=== PATIENT | female | born 1935 | race Caucasian/White ===

== ENCOUNTER 2023-06-21 07:07 | Day surgery (SDC) | payer MEDICARE, BC ==
[2023-06-17 14:22] LABS: BASOPHILS % (AUTO) 0.8 % (0-1); EOSINOPHILS # (AUTO) 0.1 X10'3 (0-0.9); EOSINOPHILS % (AUTO) 1.6 % (0-6); LYMPHOCYTES # (AUTO) 1.1 X10'3 (1.1-4.8); LYMPHOCYTES % (AUTO) 26.2 % (21-51); MEAN CORPUSCULAR HEMOGLOBIN 28.9 PG (27.0-31.0); MEAN CORPUSCULAR HGB CONC 32.6 g/dL (33.0-36.5); MEAN CORPUSCULAR VOLUME 88.7 FL (78-98); MEAN PLATELET VOLUME 9.9 FL (7.4-10.4); MONOCYTES # (AUTO) 0.3 X10'3 (0-0.9); MONOCYTES % (AUTO) 7.5 % (2-12); NEUTROPHILS # (AUTO) 2.6 X10'3 (1.8-7.7); NEUTROPHILS % (AUTO) 63.9 % (42-75); PRE OP HEMATOCRIT 37.5 % (35.0-45.0); PRE OP HEMOGLOBIN 12.2 g/dL (12.0-16.0); PRE OP PLATELET COUNT 163 X10'3 (140-440); RED BLOOD COUNT 4.23 X10'6 (4.20-5.60); RED CELL DISTRIBUTION WIDTH 15.5 % (11.5-14.5)
[2023-06-17 14:26] LABS: ALBUMIN 3.6 G/DL (3.4-5.0); ALKALINE PHOSPHATASE 68 IU/L (46-116); BLOOD UREA NITROGEN 17 MG/DL (7-18); BUN/CREATININE RATIO 17.2 (10.0-20.0); CALCIUM 8.5 MG/DL (8.5-10.1); CHLORIDE 105 MMOL/L (99-107); CREATININE 0.99 MG/DL (0.40-0.90); PRE OP ALT 33 U/L (30-65); PRE OP ANION GAP 8 (8-16); PRE OP AST 35 U/L (10-37); PRE OP BILIRUB, TOTAL 0.4 MG/DL (0.0-1.0); PRE OP GLUCOSE 95 MG/DL (70-104); PRE OP POTASSIUM 4.6 MMOL/L (3.4-5.1); PRE OP SODIUM 139 MMOL/L (135-145); TOTAL CARBON DIOXIDE 26.4 MMOL/L (24-32); TOTAL PROTEIN 7.2 G/DL (6.4-8.2); eGFR 53 ML/MIN
[~2023-06-21] VITALS: Ht 160 cm; Wt 80.3 kg
[2023-06-21] VITALS (20 sets, daily range): BP systolic 129–187; BP diastolic 61–82; PULSE 50–64; RESP 12–18; TEMP 98; O2SAT 90–100
[~2023-06-21 07:07] MED LIST: ALEN70TA80 PO; ATOR10TA70 PO; BUPIVAcaine/PF 2.5mg/ml (0.25%) 10ml vial ONE; CHOL10008 PO; LACTC PO; LEVO75TA56 PO; LORA0.5T PO; MULT-1085 PO; OXYB5TAB16 PO; cefazolin 2gm/D5W 100mL 100 ML IV ONE; famotidine 20mg tablet PO ONE; ringers solution, lacted 500 ML IV SCH
[2023-06-21] MEDS ORDERED: acetaminophen 1,000mg/100ml IV 100 ML IV PRN (09:00)
[2023-06-21] MEDS ORDERED: ringers solution, lacted 1,000 ML IV SCH (09:00)
[2023-06-21] MEDS ORDERED: proCHLORperazine 10 MG/2 ml inj IV PRN (09:00)
[2023-06-21] MEDS ORDERED: meperidine/PF 25mg/ml syringe IV PRN ×3 (09:00)
[2023-06-21] MEDS ORDERED: labetalol 20mg/4ml (5mg/ml) syringe IV PRN (09:00)
[2023-06-21] MEDS ORDERED: fentaNYL/PF 50MCG/1 ML 2ML syringe IV PRN ×2 (09:00)
[2023-06-21] MEDS ORDERED: ondansetron/PF 4mg/2ml inj IV PRN (09:00)
[2023-06-21] MEDS ORDERED: hydrALAZINE 20mg/ml inj. IV PRN (09:00)
[2023-06-21] MEDS ORDERED: fentaNYL/PF 50MCG/1 ML 2ML syringe ONE (10:09)
[2023-06-21] MEDS ORDERED: midazolam 1 mg/ML 2ml injection ONE (10:10)
[2023-06-21] MEDS ORDERED: propofol inj 20 ML IV ONE (10:22)
[2023-06-21] MEDS ORDERED: LIDOcaine 0.5% (5mg/ml) 50ml vial ONE (10:22)
--- NOTE | 2023-06-21 10:37 | NUR ---
Received from OR via [facility] TO [facility], accompanied by Anesthesiologist DR CHATTERJEE and report given by Anesthesiolgist. PT PRESENTS WITH PIV 20G LEFT WRIST, RIGHT WRIST DRESSING CDI, SPO2 97% MASK 6L, LR RUNNING AT 100MLS/HR, VSS. Addendum: 06/21/23 at 1051 by Ananya Gaston RN, RN Amended: Links added.
--- NOTE | 2023-06-21 13:27 | NUR ---
I HAVE REVIEWED D/C INSTRUCTIONS WITH PATIENT AND THEY HAVE VERBALIZED UNDERSTANDING OF INSTRUCTIONS. PATIENT D/C HOME WITH ALL BELONGINGS AND FAMILY GAVE TRANSPORT. Addendum: 06/21/23 at 1346 by Ananya Gaston RN, RN Amended: Links added.
== END 2023-06-21 13:27 | disposition home or self-care (01) ==
LOC: PAS 07:07
PROVIDERS: ATTEND Orthopaedic Surgery Hand Surgery
DX: G56.01 Carpal tunnel syndrome, right upper limb (principal); G43.909 Migraine, unspecified, not intractable, without status migrainosus; I10 Essential (primary) hypertension; E03.9 Hypothyroidism, unspecified; F32.A Depression, unspecified; G47.00 Insomnia, unspecified; E66.9 Obesity, unspecified; Z68.31 Body mass index [BMI] 31.0-31.9, adult; F41.9 Anxiety disorder, unspecified; M19.012 Primary osteoarthritis, left shoulder; G47.33 Obstructive sleep apnea (adult) (pediatric); Z88.1 Allergy status to other antibiotic agents; Z88.2 Allergy status to sulfonamides; Z79.899 Other long term (current) drug therapy; Z88.0 Allergy status to penicillin; Z88.5 Allergy status to narcotic agent; Z96.612 Presence of left artificial shoulder joint; Z98.890 Other specified postprocedural states; Z87.891 Personal history of nicotine dependence
CPT/HCPCS: 36415; 64721; 80053; 82948; 85025; 93005; J0690; J2250; J2704; J3010; J3490; J7030; J7120; Z7506; Z7512; A4215; A6449

== ENCOUNTER 2025-10-13 14:44 | Outpatient (CLI) | payer MEDICARE, BC ==
[~2025-10-13 14:44] MED LIST changes: -BUPIVAcaine/PF 2.5mg/ml (0.25%) 10ml vial ONE; -CHOL10008 PO; +CHOL25CA2 PO; -OXYB5TAB16 PO; +OXYB5TAB21 PO; -cefazolin 2gm/D5W 100mL 100 ML IV ONE; -famotidine 20mg tablet PO ONE; +iohexol 300mg/ml 100ml inj. ONE; -ringers solution, lacted 500 ML IV SCH
--- NOTE | 2025-10-13 18:52 | RADIOLOGY REPORT ---
EXAM: CT CT CHEST W/ IV CONTRAST HISTORY: LEFT UPPER LOBE MASS TECHNIQUE: CT angiogram was performed. CT scans at this facility use dose modulation, iterative reconstruction, and/or weight based dosing when appropriate to reduce radiation dose to as low as reasonably achievable. Coronal and sagittal reformations and maximum intensity projection images were created from the transaxial source data by the medical technologist chief and workstation, as well as 3-D volume rendered images with MIPs. COMPARISON: None FINDINGS: [LOWER NECK]: Unremarkable [LYMPH NODES/MEDIASTINUM]: Prominent lower paratracheal mediastinal lymph nodes, measuring up to 1.4 cm likely compatible with neoplastic involvement [CARDIOVASCULAR]: Normal cardiac size. No pericardial effusion. No aneurysmal dilatation of the great vessels. No significant coronary artery calcifications. [PULMONARY ARTERIES]: Question complete occlusion related to mass encasement of the anterior segment of the left upper lobe segmental artery. Prominence of the main pulmonary artery, which may indicate pulmonary hypertension. Slight effacement caliber of the left distal main pulmonary artery. Encasement of the lingular segmental arteries. No evidence of elevated right heart pressures. [UPPER ABDOMEN]: Multiple splenic hypoattenuating oval-shaped lesions which may be compatible with metastatic disease. [MUSCULOSKELETAL]: No CT evidence of an acute fracture or aggressive focal osseous lesion. Right prior anterior healed 3rd, 4th, 5th rib fractures. Left shoulder arthroplasty. Multilevel degenerative change of the visualized spine. [CHEST WALL]: Unremarkable. [LUNG PARENCHYMA/PLEURAL SPACE]: Large left upper lobe mass with macrolobulated and spiculated Margins with left hilar invasion and mediastinal extension. Concomitant abnormal mediastinal lymphadenopathy. Overall imaging findings compatible with lung carcinoma. 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 Inconspicuous ground-glass extension of the left upper lobe. Additional areas of ground-glass of nonspecific etiology of the periphery of the right upper lobe. Indeterminate peribronchovascular consolidation/ thickening of the right middle lobe. Scattered calcific granulomas. IMPRESSION: 1. Large left upper lobe mass with macrolobulated and spiculated Margins with left hilar invasion and mediastinal extension. 2. Concomitant abnormal mediastinal lymphadenopathy. 3. Overall imaging findings compatible with lung carcinoma. 4. Question complete occlusion related to mass encasement of the anterior segment of the left upper lobe segmental artery. 5. 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
== END 2025-10-13 23:59 | disposition home or self-care (01) ==
LOC: RAD 14:44
DX: R91.8 Other nonspecific abnormal finding of lung field (principal); M47.814 Spondylosis without myelopathy or radiculopathy, thoracic region; Z96.612 Presence of left artificial shoulder joint
CPT/HCPCS: 71260; Q9967

== ENCOUNTER 2025-10-18 06:45 | Emergency (ER) | payer MEDICARE, BC ==
[~2025-10-18] VITALS: Ht 160 cm; Wt 73.9 kg
[~2025-10-18 06:45] MED LIST changes: -iohexol 300mg/ml 100ml inj. ONE
--- NOTE | 2025-10-18 07:04 | ELECTROCARDIOGRAPH REPORT ---
[facility] Test Date: 2025-10-18 Test Time: 06:53:23 Pat Name: RAJWINDER WARE Department: EMERGENCY ROOM Room: Gender: F Entry Rep: PM : 1935 Requested By: EDIS SCHMITZ Order Number: [id number] Reading MD: Dr. Edis Schmitz Measurements Intervals [place] Rate: 76 P: 66 MA: 198 QRS: 59 QRSD: 103 T: 36 QT: 385 QTc: 433 Interpretive Statements Sinus rhythm Supraventricular bigeminy Low voltage, precordial leads Electronically Signed On 10-18-2025 7:06:[address] Edis Schmitz Please click the below link to view image of tracing.
--- NOTE | 2025-10-18 07:31 | RADIOLOGY REPORT ---
CHEST RADIOGRAPH Indication: CP Technique: Single frontal view of the chest was obtained COMPARISON: CT CT CHEST W/ IV CONTRAST on DOS: 10/13/25 FINDINGS: Lines and Tubes: None Lungs: Increased interstitial prominence. This may represent pulmonary vascular congestion and/or viral pneumonia. Left upper lobe airspace consolidation. Pleura: No effusion. No pneumothorax. Cardiomediastinal contours: Unremarkable Bones: Unremarkable IMPRESSION: Increased interstitial prominence. This may represent pulmonary vascular congestion and/or viral pneumonia. Left upper lobe masslike airspace consolidation. This may represent neoplasm or infection. Clinical correlation advised. Recommend repeat imaging after treatment to ensure complete resolution.
[2025-10-18 07:36] LABS: MEAN PLATELET VOLUME 8.1 FL (7.4-10.4); RED CELL DISTRIBUTION WIDTH 15.9 % (11.5-14.5)
[2025-10-18 07:58] LABS: CREATININE 1.08 MG/DL (0.40-0.90); PRO BRAIN NATRIURETIC PEPTIDE 1223 PG/ML (0-450); TOTAL CARBON DIOXIDE 28.2 MMOL/L (24-32); eCRCL 29 ML/MIN; eGFR 48 ML/MIN
--- NOTE | 2025-10-18 10:49 | Physician Documentation ---
History of Present Illness ~ Chief Complaint: Chest Pain Stated Complaint: CHEST PAINS A ALS Time Seen by MD: 07:17 OK to notify your PCP?: Yes Primary Medical Doctor: Cristopher FISHER Source: patient, RN/MD, EMS, RN notes reviewed, EMS notes reviewed, old records Mode of Arrival: EMS Exam Limitations: no limitations HPI THIS 89-YEAR-OLD FEMALE presents to the ER after having some chest pain that was quite significant in severe in the left chest wall nonradiating. Movement seems to make it worse. She did not take any pain medications because she was told she should not. She has not appointment for a stress test with her software configuration engineer at 1:00 p.m.. Patient has not had any food today. She recently was diagnosed with a lung mass has a CAT scan just the other day that showed a spiculated mass. She denies any other complaints such as shortness of breath diaphoresis. She has no history of prior mild cardial infections. She does take diuretics. She has a past medical history of smoking 60 year pack history. She appears well states her symptoms seemed to have resolved Medication Reconciliation Allergies: Coded Allergies: clindamycin (Verified Allergy, Unknown, 04/14/15) codeine (Verified Allergy, Unknown, 04/14/15) sulfamethoxazole (Verified Allergy, Unknown, 06/20/23) trimethoprim (Verified Allergy, Unknown, 06/20/23) Penicillins (Verified Adverse Reaction, Intermediate, rash, 06/20/23) Scheduled Alendronate Sodium (Alendronate Sodium), 1 TAB PO QSUNDAY, (Reported) Atorvastatin Calcium (Atorvastatin Calcium), 1 TAB PO DAILY, (Reported) Cholecalciferol (Vitamin D3) (Vitamin D3), 1 CAP PO DAILY, (Reported) Lactobacillus Acidophilus (ACIDOPHILUS capsule), 1 CAP PO DAILY, (Reported) Levothyroxine Sodium (Levoxyl), 1 TAB PO DAILY, (Reported) Multivitamin (Multi Vitamin Daily), 1 EACH PO DAILY, (Reported) Oxybutynin Chloride (Oxybutynin Chloride), 1 TAB PO BID, (Reported) Scheduled PRN Lorazepam* (Ativan*), 1 TAB PO TID PRN for for anxiety/agitation, (Reported) Past Medical History Past Medical History: Hypothyroidism, MRSA Abscess Past Surgical History: orthopedic surgeries Smoking Status: Current every day smoker Alcohol Use: Occasionally Drug Use: none Lives with: S/O Lives In: Home Occupation: retired Review of Systems All Other Systems at this time: Reviewed and Negative Physical Exam Vital Signs: RN Vital Signs have been reviewed: Yes, Temperature: 98.2, Source: Oral, Heart Rate: 61, Respiratory Rate: 18, BP: 108/56, Pulse Oximetry: 99, Weight: 73.900 Oxygen Flow Rate: 2.0 Physical Exam General: The patient is well developed, well nourished, nontoxic appearing and is in no acute distress. Skin: [place], warm and dry with no rashes. HEENT: Head was normocephalic and atraumatic. Eyes - pupils equal, round, reactive to light and accommodation. Extraocular movements were intact. Conjunctivae were nonicteric. The mouth and oropharynx were clear with moist mucous membranes. There were no pharyngeal exudates or erythema. Neck: Supple and nontender. There was no jugular venous distention, lymphadenopathy, thyromegaly or masses. Chest: Clear to auscultation bilaterally without wheezes, rales or rhonchi. No accessory muscle use. No dullness to percussion. Positive chest wall pain with movement and palpation Heart: Rate regular and rhythmic. S1, S2. No murmurs. Palpation of the chest wall was normal. No rubs or thrills. Positive left chest wall anterior reproducible pain Abdomen: Soft, nontender and nondistended. Positive bowel sounds. No guarding or rebound. Extremities: No cyanosis, clubbing or edema. The patient moves all extremities. Pulses were equal and symmetric. Neurologic: Motor sensory grossly intact Psychologic: The patient was oriented to person, place and time. The patient demonstrated appropriate judgement and insight. Progress Results/Orders Reviewed/noted all lab results: Yes Results/Orders Orders - CARLOS MACHADO MD Chest,Single View (10/18/25 07:02) Monitor (10/18/25 07:02) Saline Lock (10/18/25 07:02) Oxygen (10/18/25 07:02) Electrocardiogram (10/18/25 07:02) Completed Orders - CARLOS MACHADO MD Chest,Single View (10/18/25 07:02) Cbc/Diff (10/18/25 07:02) BMP (10/18/25 07:02) PBNP (10/18/25 07:02) Electrocardiogram (10/18/25 07:02) Hs Troponin I W Calculations (10/18/25 07:02) Hs Troponin I W Calculations (10/18/25 09:02) Hs Troponin I W Calculations (10/18/25 10:02) Acetaminophen 325mg Tablet (Tylenol Tabl (10/18/25 11:20) Ketorolac Trometh 15mg/Ml Vial (Toradol (10/18/25 11:20) Medications Received in ER Medications (Trade) Dose Ordered Sig/Tracie Route PRN Reason Start Time Stop Time Status Last Admin Dose Admin (Tylenol tablet) 325 mg ONCE ONCE PO 10/18/25 11:20 10/18/25 11:21 DC 10/18/25 11:50 325 MG (Toradol injection) 10 mg ONCE ONCE IV 10/18/25 11:20 10/18/25 11:21 DC 10/18/25 11:50 10 MG Vital Signs 10/18/25 10/18/25 10/18/25 06:49 07:16 08:12 Temp 98.2 Pulse 77 61 Resp 16 14 18 B/P (MAP) 104/50 108/56 (73) Pulse Ox 93 99 O2 Flow Rate 2.0 Laboratory Tests Test 10/18/25 07:11 10/18/25 09:31 10/18/25 10:51 White Blood Count 4.8 Red Blood Count 3.37 L Hemoglobin 9.2 L Hematocrit 28.4 L Mean Corpuscular Volume 84.2 Mean Corpuscular Hemoglobin 27.3 Mean Corpuscular Hemoglobin Concent 32.5 L Red Cell Distribution Width 15.9 H Platelet Count 223 Mean Platelet Volume 8.1 Neutrophils (%) (Auto) 69.0 Lymphocytes (%) (Auto) 19.1 L Monocytes (%) (Auto) 10.0 Eosinophils (%) (Auto) 1.3 Basophils (%) (Auto) 0.6 Neutrophils # (Auto) 3.3 Lymphocytes # (Auto) 0.9 L Monocytes # (Auto) 0.5 Eosinophils # (Auto) 0.1 Basophils # (Auto) 0.0 CBC Comment Sodium Level 137 Potassium Level 4.1 Chloride Level 104 Carbon Dioxide Level 28.2 Anion Gap 5 L Blood Urea Nitrogen 13 Creatinine 1.08 H Estimated GFR/1.73 m2 48 BUN/Creatinine Ratio 12.0 Glucose Level 102 Calcium Level 7.8 L Troponin I High Sensitivity 11 13 12 Pro-B-Type Natriuretic Peptide 1223 H Albumin 2.5 L Chemistry Comments Troponin I High Sens Percent Delta 18 7 Troponin I Hi Sens Absolute Change 2 -1 Re-Evaluation Re-Evaluation : Re-Evaluation: Resolved, Improved Progress Patient was seen and examined. Patient is given reassurance. Patient is elderly female who has been diagnosed with a spiculated large lung mass. No signs of pneumonia. Patient has a WBC of 4.8 unlikely to be infectious etiology. She does have some anemia with a hemoglobin of 9 hematocrit 28 normal MCV. Patient has had anemia in the past. Possibility he has chronic anemia versus anemia of chronic disease i.e. lung cancer. Her electrolytes are reassuring. Troponins are negative x3. Calcium within normal limits. Patient may need chemotherapy radiation therapy in the future. Has a stress test at 1:00 p.m.. Patient was not given any fluids or food. Patient is NPO and will have her procedure in 1 hour. Patient is being discharged from our facility. Patient received Tylenol and Motrin for her chest pain that is seems to have resolved otherwise patient appears well. Continuous ekg monitor interpretation shows normal sinus rhythm heart rate 70s, no ectopy, normal, my interpretation. Pulse oximetry monitor interpretation shows normal oxygenation at 99% room air, normal, my interpretation. EKG/XRAY/CT/US/VASC/MRI EKG : Intepreting Monitor?: Yes Additional Comment [facility] Test Date: 2025-10-18 Test Time: 06:53:23 Pat Name: RAJWINDER WARE Department: EMERGENCY ROOM Room: Gender: F Nurse School: PM : 1935 Requested By: CARLOS MACHADO Order Number: [id number] Reading MD: Dr. Carlos Machado Measurements Intervals [place] Rate: 76 P: 66 MI: 198 QRS: 59 QRSD: 103 T: 36 QT: 385 QTc: 433 Interpretive Statements Sinus rhythm Supraventricular bigeminy Low voltage, precordial leads Electronically Signed On 10-18-2025 7:06:[address] Carlos Machado Please click the below link to view image of tracing. EKG Date and Time:10/18/25 0653 Chest X-Ray : Interpreted By: both Views: 1 VIEW Additional Comments CHEST RADIOGRAPH Indication: CP Technique: Single frontal view of the chest was obtained COMPARISON: CT CT CHEST W/ IV CONTRAST on DOS: 10/13/25 FINDINGS: Lines and Tubes: None Lungs: Increased interstitial prominence. This may represent pulmonary vascular congestion and/or viral pneumonia. Left upper lobe airspace consolidation. Pleura: No effusion. No pneumothorax. Cardiomediastinal contours: Unremarkable Bones: Unremarkable IMPRESSION: Increased interstitial prominence. This may represent pulmonary vascular congestion and/or viral pneumonia. Left upper lobe masslike airspace consolidation. This may represent neoplasm or infection. Clinical correlation advised. Recommend repeat imaging after treatment to ensure complete resolution. Electronically Signed by:CRICKET OBANDO MD Date & Time: 10/18/25 0728 Heart Score: Heart Score Response (Comments) Value History Slightly Suspicious 0 EKG Repolarization Disturb 1 Age >65 2 Risk Factors 1 or 2 risk factors 1 Troponin Normal limit 0 Total 4 Medical Decision Making Additional information obtaine: old records Findings Chest mass versus chest wall pain versus pulmonary embolism versus cardiac etiology Heart Score: 4 Differential Dx:Considerations: Include: angina, aortic dissection, chest wall pain, cholelithiasis, CHF, costochondritis, esophageal reflux/spasm, gastritis, herpes zoster, myocardial infarction, pericarditis, pleuritis, pancreatitis, pneumonia, pneumothorax, pulmonary embolus, other Departure Disposition: 01 HOME / SELF CARE / HOMELESS Impression: Primary Impression: Chest wall pain Additional Impression: Lung mass Condition: Stable Discharge Instructions: Chest Wall Pain Referrals: NO PRIMARY CARE PROVIDER (PCP) Comments Go to your stress test that is scheduled at 1 pm at your cardiology's office Education Educated: Patient Educated regarding: diagnosis, prognosis, need for follow up, other Signature Scribe Signature: No scribed Attestation: The note accurately reflects work and decisions made by me.Carlos Machado MD 10/18/25 11:24 CARLOS MACHADO MD Oct 18, 2025 10:48
[2025-10-18] MEDS: ketorolac trometh 15mg/ml vial 15 MG/ML ML IV ONE (11:50)
[2025-10-18 12:12] VITALS: BP 119/60; PULSE 56; TEMP 98.2; O2SAT 100
[2025-10-18 12:19] VITALS: RESP 14
== END 2025-10-18 12:23 | disposition home or self-care (01) ==
LOC: ER 06:46
DX: R07.89 Other chest pain (principal); R91.8 Other nonspecific abnormal finding of lung field; F17.200 Nicotine dependence, unspecified, uncomplicated; E03.9 Hypothyroidism, unspecified; Z88.1 Allergy status to other antibiotic agents; Z88.0 Allergy status to penicillin; Z88.2 Allergy status to sulfonamides; Z88.5 Allergy status to narcotic agent; Z86.14 Personal history of Methicillin resistant Staphylococcus aureus infection; Z79.899 Other long term (current) drug therapy; Z98.890 Other specified postprocedural states; Z72.89 Other problems related to lifestyle
CPT/HCPCS: 36415; 71045; 80048; 83880; 84484; 85025; 93005; 96374; 99285; J1885